=== PATIENT | female | born 1940 | race Caucasian/White ===

== ENCOUNTER 2017-08-28 00:25 | Emergency (ER) | payer MEDICARE ==
[~2017-08-28] VITALS: Ht 157.5 cm; Wt 50.8 kg
== END 2017-08-28 00:47 | disposition home or self-care (01) ==
LOC: ER 00:25
DX: M79.604 Pain in right leg (principal); M76.62 Achilles tendinitis, left leg; Y93.79 Activity, other specified sports and athletics
CPT/HCPCS: 99282

== ENCOUNTER 2018-12-05 11:48 | Emergency (ER) | payer MEDICARE ==
[~2018-12-05] VITALS: Ht 157.5 cm; Wt 50.8 kg
[2018-12-05 14:19] VITALS: BP 111/59
--- NOTE | 2018-12-05 14:41 | Diagnostic Imaging Report ---
EXAM: HAND 3+ VIEWS LEFT DATE: 12/05/2018 12:09 PM INDICATION:Hand pain COMPARISON: None FINDINGS: 3 views of the left hand show the bones diffusely demineralized. No displaced fracture or dislocation. There are degenerative changes at DIP joints. Soft tissues unremarkable. IMPRESSION: No acute bony abnormality. 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 Signed by: Dr. Philip Comer M.D. on 12/05/2018 2:38 PM
== END 2018-12-05 14:21 | disposition home or self-care (01) ==
LOC: ER 11:48
DX: S60.052A Contusion of left little finger without damage to nail, initial encounter (principal); W22.8XXA Striking against or struck by other objects, initial encounter; Y92.009 Unspecified place in unspecified non-institutional (private) residence as the place of occurrence of the external cause
CPT/HCPCS: 99283